=== PATIENT | male | born 1965 | race Caucasian/White ===

== ENCOUNTER 2018-05-19 13:05 | Emergency (ER) | payer OTHER ==
[2018-05-19 13:34] VITALS: RESP 18
--- NOTE | 2018-05-19 14:24 | XR ---
EXAMINATION TYPE: XR chest 2V DATE OF EXAM ORDERED: 05/19/2018 HISTORY: Pain. REFERENCE: None. FINDINGS: The lungs are clear. Pleural spaces are clear. Heart size is normal. IMPRESSION: NORMAL CHEST.
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
[2018-05-19 15:22] VITALS: BP 134/68; PULSE 74; TEMP 98.1
== END 2018-05-19 14:50 | disposition home or self-care (01) ==
LOC: EC 13:05
DX: S29.012A Strain of muscle and tendon of back wall of thorax, initial encounter (principal); V47.5XXA Car driver injured in collision with fixed or stationary object in traffic accident, initial encounter; Y93.89 Activity, other specified; Y92.488 Other paved roadways as the place of occurrence of the external cause
CPT/HCPCS: 71046; 72072; 99284